=== PATIENT | male | born 1985 | race Hispanic/Latino ===

== ENCOUNTER 2017-08-09 06:10 | Emergency (ER) | payer BC ==
[2017-08-09] MEDS ORDERED: Sodium Chloride 0.9% 1,000 ML IV ONE (06:28)
[2017-08-09 06:38] LABS: BASO % 0.5 % (0.0-2.0); EOS % 0.6 % (0.0-4.0); HEMATOCRIT 43.3 % (35.0-51.0); LYMPH # 1.8 K/uL (1.0-4.3); LYMPH % 26.2 % (20.0-40.0); MEAN CORPUSCULAR HEMOGLOBIN 30.8 pg (27.0-31.0); MEAN CORPUSCULAR HGB CONC 34.6 g/dL (33.0-37.0); MONO # 0.5 K/uL (0.0-0.8); MONO % 7.3 % (0.0-10.0); RED CELL DISTRIBUTION WIDTH 12.9 % (11.5-14.5); WHITE BLOOD COUNT 7.1 K/uL (4.8-10.8)
[2017-08-09 06:41] LABS: RBC URINE 421 /hpf (0-3); URINE BACTERIA RARE (<OCC); URINE BILIRUBIN NEGATIVE (NEGATIVE); URINE BLOOD 3+ (NEGATIVE); URINE COLOR Yellow (YELLOW); URINE GLUCOSE (UA) NORMAL (Normal); URINE KETONE NEGATIVE (NEGATIVE); URINE LEUKOCYTE ESTERASE NEG Leu/uL (Negative); URINE PROTEIN NEGATIVE (NEGATIVE); URINE UROBILINOGEN NORMAL mg/dL (0.2-1.0); WBC URINE < 1 /hpf (0-5)
[2017-08-09 06:51] VITALS: RESP 18
[2017-08-09 06:51] LABS: ALB/GLOB RATIO 1.3 (1.0-2.1); ALKALINE PHOSPHATASE 107 U/L (38-126); ALT/SGPT 48 U/L (21-72); AST/SGOT 32 U/L (17-59); BILIRUBIN,TOTAL 0.4 mg/dL (0.2-1.3); BLOOD UREA NITROGEN 20 mg/dL (9-20); CALCIUM 9.1 mg/dl (8.6-10.4); CARBON DIOXIDE 27 mmol/L (22-30); CHLORIDE 97 mmol/L (98-107); GFR AFRICAN-AMERICAN > 60; GLUCOSE,RANDOM 104 mg/dL (75-110); POTASSIUM 4.1 mmol/L (3.6-5.2); SODIUM 137 mmol/L (132-148); TOTAL PROTEIN 8.1 g/dL (6.3-8.3)
--- NOTE | 2017-08-09 07:29 | C.PDOC ---
History Of Present Illness 31 year old male with no significant PMHX including no prior history of kidney stones, presents to the ED with complaints of right flank pain and urinary urgency beginning SKEIN BANDER. Patient states pain has currently resolved and denies fever, nausea, or vomiting . R FLANK PAIN, URINARY URGENCY SKEIN BANDER. NO PRIOR HO KIDNEY STONES. CURRENTLY PAIN RESOLVED. NO FEVER, NV EXAM MILD DIST NONTOXIC ABD NEG REMAINDER NEG Time Seen by Provider: 08/09/17 07:23 Chief Complaint (Nursing): Male Genitourinary History Per: Patient History/Exam Limitations: no limitations Onset/Duration Of Symptoms: Mins (just SKEIN BANDER) Current Symptoms Are (Timing): Still Present Quality Of Discomfort: "Pain" Associated Symptoms: denies: Fever, Chills, Nausea, Vomiting Alleviating Factors: None Recent travel outside of the [place]: No Past Medical History Reviewed: Historical Data, Nursing Documentation, Vital Signs Vital Signs: Last Vital Signs Temp 97.8 F 08/09/17 09:09 Pulse 80 08/09/17 09:09 Resp 18 08/09/17 09:09 BP 142/93 H 08/09/17 09:09 Pulse Ox 100 08/09/17 09:09 - Medical History PMH: Anxiety, Depression, Kidney Stones Family History: States: Unknown Family Hx - Social History Hx Alcohol Use: Yes Hx Substance Use: No - Immunization History Hx Tetanus Toxoid Vaccination: No Hx Influenza Vaccination: Yes Hx Pneumococcal Vaccination: No Review Of Systems Constitutional: Negative for: Fever, Chills Cardiovascular: Negative for: Chest Pain, Palpitations Respiratory: Negative for: Cough, Shortness of Breath Gastrointestinal: Positive for: Other (right flank pain ). Negative for: Nausea , Vomiting, Diarrhea Genitourinary: Positive for: Other (increased urinary urgency ). Negative for: Dysuria, Hematuria, Penile Discharge Physical Exam - Physical Exam Appears: Non-toxic, Other (patient appears to be in mild distress) Skin: Warm, Dry, No Rash Head: Atraumatic, Normacephalic, No Tenderness Eye(s): bilateral: Normal Inspection, PERRL, EOMI Oral Mucosa: Moist Neck: Supple Chest: Symmetrical, No Deformity Cardiovascular: Rhythm Regular, No Murmur Respiratory: No Rales, No Rhonchi, No Wheezing, Other (clear to auscultation bilaterally ) Gastrointestinal/Abdominal: Soft, No Tenderness, No Distention, No Guarding, No Rebound Extremity: Normal ROM, No Tenderness Neurological/Psych: Oriented x3 Gait: Steady ED Course And Treatment - Laboratory Results Result Diagrams: 08/09/17 06:34 08/09/17 06:34 O2 Sat by Pulse Oximetry: 99 (RA) Pulse Ox Interpretation: Normal - CT Scan/US Abdomen Pelvis CT w/o IV contrast Other Rad Studies (CT/US): Read By Radiologist, Radiology Report Reviewed CT/US Interpretation: FINDINGS: LOWER THORAX: 3 millimeter subpleural ground- glass nodule at the anterior aspect of the right middle lobe. Additional 6 millimeter nodule within the right lower lobe. LIVER: Unremarkable. No gross lesion or ductal dilatation. GALLBLADDER AND BILE DUCTS: Unremarkable. PANCREAS: Unremarkable. No gross lesion or ductal dilatation. SPLEEN: Unremarkable. ADRENALS: Unremarkable. No mass. KIDNEYS AND URETERS: Moderate right renal hydroureteronephrosis with perinephric fat stranding. In addition, there is a 2 millimeter calculus seen at the right ureterovesicular. Left kidney appears preserved. VASCULATURE: Unremarkable. No aortic aneurysm. BOWEL: Unremarkable. No obstruction. No gross mural thickening. APPENDIX: Unremarkable. Normal appendix. PERITONEUM: Unremarkable. No free fluid. No free air. LYMPH NODES: Unremarkable. No enlarged lymph nodes. BLADDER: Mild thickening of the urinary bladder. 2 millimeter calculus seen at the right ureterovesicular junction. REPRODUCTIVE: Unremarkable. BONES: No acute fracture. OTHER FINDINGS: Within the proximal right inguinal canal, there is a heterogeneous soft tissue focus measuring 2.3 x 2.2 centimeters demonstrating a Hounsfield unit attenuation of 23, nonspecific. Clinical correlation. This is best seen on series 3, image 136. IMPRESSION: 1. Moderate right renal hydroureteronephrosis with perinephric fat stranding. In addition, there is a 2 millimeter calculus seen at the right ureterovesicular. 2. Mild thickening of the urinary bladder. 3. 3 millimeter subpleural ground-glass nodule at the anterior aspect of the right middle lobe. Additional 6 millimeter nodule within the right lower lobe. 4. Within the proximal right inguinal canal, there is a heterogeneous soft tissue focus measuring 2.3 x 2.2 centimeters demonstrating a Hounsfield unit attenuation of 23, nonspecific. Clinical correlation. This is best seen on series 3, image 136. 5. Additional findings as above. Progress Note: Abdomen Pelvis CT, UA, and blood work was ordered. Patient was given Toradol, Flomax, and IV fluids. Progress - Re-Evaluation Re-evaluation Note: 08/09/17 08:[address] FINDINGS DISCUSSED. FU PMD, - Data Reviewed Data Reviewed: Lab, Diagnostic imaging, Old records Disposition Counseled Patient/Family Regarding: Studies Performed, Diagnosis, Need For Followup, Rx Given - Disposition Referrals: [facility] [Outside] [facility] [Outside] Darius Lawton Jr., MD [Staff Provider] - Disposition: HOME/ ROUTINE Disposition Time: 08:56 Condition: IMPROVED Prescriptions: Acetaminophen/Codeine [Tylenol/Codeine 300 MG/30 MG] 2 tab PO Q6H #20 tab Ibuprofen [Motrin] 600 mg PO Q6 #30 tab Ondansetron [Zofran Odt] 4 mg PO TID PRN #9 odt PRN Reason: Nausea/Vomiting Tamsulosin [Flomax] 0.4 mg PO DAILY #14 cap Instructions: Kidney Stones (ED) Forms: [employer] (Greek), Work Excuse - Clinical Impression Clinical Impression: Nephrolithiasis - Scribe Statement The provider has reviewed the documentation as recorded by the Scribe Milagro Fritz All medical record entries made by the Scribe were at my direction and personally dictated by me. I have reviewed the chart and agree that the record accurately reflects my personal performance of the history, physical exam, medical decision making, and the department course for this patient. I have also personally directed, reviewed, and agree with the discharge instructions and disposition.
--- NOTE | 2017-08-09 08:54 | CT ---
PROCEDURE: CT Abdomen and Pelvis without intravenous contrast HISTORY: Right FLANK PAIN HEMATURIA COMPARISON: None. TECHNIQUE: Multiple contiguous axial images were performed through the abdomen and pelvis without the use of intravenous contrast. Subsequently, sagittal and coronal reformatted images were obtained. Radiation dose: Total exam DLP = 479 mGy-cm. This CT exam was performed using one or more of the following dose reduction techniques: Automated exposure control, adjustment of the mA and/or kV according to patient size, and/or use of iterative reconstruction technique. FINDINGS: LOWER THORAX: 3 millimeter subpleural ground-glass nodule at the anterior aspect of the right middle lobe. Additional 6 millimeter nodule within the right lower lobe. LIVER: Unremarkable. No gross lesion or ductal dilatation. GALLBLADDER AND BILE DUCTS: Unremarkable. PANCREAS: Unremarkable. No gross lesion or ductal dilatation. SPLEEN: Unremarkable. ADRENALS: Unremarkable. No mass. KIDNEYS AND URETERS: Moderate right renal hydroureteronephrosis with perinephric fat stranding. In addition, there is a 2 millimeter calculus seen at the right ureterovesicular. Left kidney appears preserved. VASCULATURE: Unremarkable. No aortic aneurysm. BOWEL: Unremarkable. No obstruction. No gross mural thickening. APPENDIX: Unremarkable. Normal appendix. PERITONEUM: Unremarkable. No free fluid. No free air. LYMPH NODES: Unremarkable. No enlarged lymph nodes. BLADDER: Mild thickening of the urinary bladder. 2 millimeter calculus seen at the right ureterovesicular junction. REPRODUCTIVE: Unremarkable. BONES: No acute fracture. OTHER FINDINGS: Within the proximal right inguinal canal, there is a heterogeneous soft tissue focus measuring 2.3 x 2.2 centimeters demonstrating a Hounsfield unit attenuation of 23, nonspecific. Clinical correlation. This is best seen on series 3, image 136. IMPRESSION: 1. Moderate right renal hydroureteronephrosis with perinephric fat stranding. In addition, there is a 2 millimeter calculus seen at the right ureterovesicular. 2. Mild thickening of the urinary bladder. 3. 3 millimeter subpleural ground-glass nodule at the anterior aspect of the right middle lobe. Additional 6 millimeter nodule within the right lower lobe. 4. Within the proximal right inguinal canal, there is a heterogeneous soft tissue focus measuring 2.3 x 2.2 centimeters demonstrating a Hounsfield unit attenuation of 23, nonspecific. Clinical correlation. This is best seen on series 3, image 136. 5. Additional findings as above.
[2017-08-09 09:10] VITALS: BP 142/93; PULSE 80; TEMP 97.8
[2017-08-10 09:18] VITALS: O2SAT 99
== END 2017-08-09 09:10 | disposition home or self-care (01) ==
LOC: C.ER 06:10
DX: N20.0 Calculus of kidney (principal)
CPT/HCPCS: 74176; 80053; 81001; 85025; 96361; 96374; 99285; J1885; J7040